=== PATIENT | female | born 1955 | race Caucasian/White ===

== ENCOUNTER → 2016-09-01 | Outpatient (CLI) | payer OTHER ==
[2016-09-01 13:37] LABS: MEAN CORPUSCULAR HEMOGLOBIN 33.4 pg (27.0-33.0); MEAN CORPUSCULAR HGB CONC 33.1 g/dl (32.0-36.5); MEAN CORPUSCULAR VOLUME 100.7 fl (80.0-96.0); RED CELL DISTRIBUTION WIDTH 11.6 % (11.5-14.5); WHITE BLOOD COUNT 5.8 K/mm3 (4.0-10.0)
[2016-09-01 13:39] LABS: ALBUMIN 4.2 GM/DL (3.2-5.2); ALBUMIN/GLOBULIN RATIO 1.27 (1.00-1.93); ALKALINE PHOSPHATASE 73 U/L (45-117); ALT/SGPT 23 U/L (12-78); ANION GAP 9 MEQ/L (8-16); AST/SGOT 21 U/L (15-37); BILIRUBIN,TOTAL 0.3 MG/DL (0.2-1.0); BLOOD UREA NITROGEN 10 MG/DL (7-18); CALCIUM LEVEL 9.5 MG/DL (8.5-10.1); CARBON DIOXIDE LEVEL 28 MEQ/L (21-32); CHLORIDE LEVEL 101 MEQ/L (98-107); CHOLESTEROL LEVEL 257 MG/DL (<200); CREATININE FOR GFR 0.68 MG/DL (0.55-1.02); GLOMERULAR FILTRATION RATE > 60.0 (>51); GLUCOSE, FASTING 94 MG/DL (70-105); POTASSIUM SERUM 4.6 MEQ/L (3.5-5.1); SODIUM LEVEL 138 MEQ/L (136-145); TOTAL PROTEIN 7.5 GM/DL (6.4-8.2); TRIGLYCERIDES LEVEL 75 MG/DL (<150)
== END ==
LOC: M WUC 09:02
PROVIDERS: ATTEND Nurse Practitioner Adult Health
DX: Z00.00 Encounter for general adult medical examination without abnormal findings (principal)

== ENCOUNTER → 2016-12-17 | Outpatient (CLI) | payer OTHER ==
--- NOTE | 2016-12-17 11:06 | REPMRS ---
Patient History The patient states she has not had a clinical breast exam in over a year. Patient is postmenopausal. Family history of colorectal cancer in mother at age 50 or over and breast cancer in maternal aunt under age 50. Digital Woman Screen Mammo: December 17, 2016 - Exam #: [id number] Bilateral CC and MLO view(s) were taken. Technologist: Jessenia Park, Technologist Prior study comparison: December 16, 2015, digital woman screen mammo performed at [facility]. 2013, bilateral mammogram, performed at [facility]. FINDINGS: There are scattered fibroglandular densities. There has been no change in the appearance of the mammogram from the prior studies. There is a mild amount of scattered fibroglandular density which is fairly symmetric. There is no interval development of dominant mass, architectural distortion, or clustered microcalcification suggestive of malignancy. ASSESSMENT: BI-RADS/ACR category 1 mammogram. Negative. Recommendation Routine screening mammogram in 1 year (for women over age 40). This mammogram was interpreted with the aid of an FDA-approved computer-aided dectection system. Electronically Signed By: Skyler Arzola MD 12/17/16 2080
== END ==
LOC: M WHC 09:13
PROVIDERS: ATTEND Nurse Practitioner Adult Health
DX: Z12.39 Encounter for other screening for malignant neoplasm of breast (principal)

== ENCOUNTER → 2017-04-05 | Outpatient (REF) | payer OTHER ==
[2017-04-05 12:17] LABS: ALBUMIN/GLOBULIN RATIO 1.25 (1.00-1.93); ALKALINE PHOSPHATASE 67 U/L (45-117); ALT/SGPT 24 U/L (12-78); ANION GAP 8 MEQ/L (8-16); AST/SGOT 19 U/L (15-37); BILIRUBIN,TOTAL 0.4 MG/DL (0.2-1.0); BLOOD UREA NITROGEN 7 MG/DL (7-18); CALCIUM LEVEL 9.8 MG/DL (8.5-10.1); CARBON DIOXIDE LEVEL 30 MEQ/L (21-32); CHLORIDE LEVEL 102 MEQ/L (98-107); CHOLESTEROL LEVEL 237 MG/DL (<200); CREATININE FOR GFR 0.64 MG/DL (0.55-1.02); GLOMERULAR FILTRATION RATE > 60.0 (>51); GLUCOSE, FASTING 82 MG/DL (70-105); POTASSIUM SERUM 4.2 MEQ/L (3.5-5.1); SODIUM LEVEL 140 MEQ/L (136-145); TOTAL PROTEIN 7.2 GM/DL (6.4-8.2); TRIGLYCERIDES LEVEL 59 MG/DL (<150)
== END ==
LOC: M SFHCPLAZ 08:51
PROVIDERS: ATTEND Nurse Practitioner Adult Health
DX: I10 Essential (primary) hypertension (principal); E55.9 Vitamin D deficiency, unspecified; E78.2 Mixed hyperlipidemia

== ENCOUNTER → 2017-04-26 | Outpatient (CLI) | payer OTHER ==
--- NOTE | 2017-04-26 13:11 | REP ---
Clinical: Lung screening. History smoking. Comparison: None Technique: Axial low-dose noncontrast images from the thoracic inlet to the upper abdomen using lung screening technique. Findings: The lung kramer are well-aerated. A 5 mm noncalcified density is appreciated in the periphery of the right lower lobe (image 61) which by appearance likely represent small focal scar, but active pathology including nodule cannot be excluded. No consolidation or mass lesion is appreciated. No pleural effusion/reaction or pneumothorax. Tracheobronchial tree is patent. Mediastinum demonstrates mild atherosclerotic changes of the coronary arteries without cardiomegaly. Impression: Lung-RADS category II. 5 mm noncalcified density in the right lower lobe. Management recommendations include 12-month follow-up low-dose CT examination. Signed by Jeffery Escobedo MD 04/26/2017 01:03 P
== END ==
LOC: M RAD 10:21
PROVIDERS: ATTEND Nurse Practitioner Adult Health
DX: Z72.0 Tobacco use (principal)

== ENCOUNTER → 2017-09-22 | Outpatient (CLI) | payer OTHER ==
[2017-09-22 13:06] LABS: HEMATOCRIT 40.6 % (36.0-47.0); HEMOGLOBIN 13.8 g/dl (12.0-15.5); MEAN CORPUSCULAR HEMOGLOBIN 32.9 pg (27.0-33.0); MEAN CORPUSCULAR VOLUME 96.9 fl (80.0-96.0); PLATELET COUNT, AUTOMATED 373 10^3/uL (150-450); RED BLOOD COUNT 4.19 10^6/uL (4.00-5.40); RED CELL DISTRIBUTION WIDTH 11.8 % (11.5-14.5); WHITE BLOOD COUNT 6.3 10^3/uL (4.0-10.0)
[2017-09-22 13:40] LABS: ALBUMIN 4.1 GM/DL (3.2-5.2); ALBUMIN/GLOBULIN RATIO 1.11 (1.00-1.93); ALKALINE PHOSPHATASE 72 U/L (45-117); ALT/SGPT 25 U/L (12-78); ANION GAP 8 MEQ/L (8-16); AST/SGOT 21 U/L (7-37); BILIRUBIN,TOTAL 0.4 MG/DL (0.2-1.0); BLOOD UREA NITROGEN 8 MG/DL (7-18); CALCIUM LEVEL 9.5 MG/DL (8.5-10.1); CARBON DIOXIDE LEVEL 27 MEQ/L (21-32); CHLORIDE LEVEL 103 MEQ/L (98-107); CHOLESTEROL LEVEL 237 MG/DL (<200); CHOLESTEROL RISK RATIO 2.323 (<5); CREATININE FOR GFR 0.75 MG/DL (0.55-1.30); GLOMERULAR FILTRATION RATE > 60.0 (>51); GLUCOSE, FASTING 101 MG/DL (70-100); HDL CHOLESTEROL 102 MG/DL (>40); NON-HDL-C 135 MG/DL; SODIUM LEVEL 138 MEQ/L (136-145); TOTAL PROTEIN 7.8 GM/DL (6.4-8.2); TRIGLYCERIDES LEVEL 65 MG/DL (<150)
[2017-09-22 15:05] LABS: TOTAL 25(OH) VITAMIN D 37.8 NG/ML (30.0-100.0)
== END ==
LOC: M WUC 09:24
DX: Z00.00 Encounter for general adult medical examination without abnormal findings (principal); E55.9 Vitamin D deficiency, unspecified
CPT/HCPCS: 80053

== ENCOUNTER → 2018-03-21 | Outpatient (CLI) | payer OTHER | LOC: M WHC 09:51 | DX: Z12.31 Encounter for screening mammogram for malignant neoplasm of breast (principal) | CPT/HCPCS: 77067 ==

== ENCOUNTER → 2018-05-09 | Outpatient (CLI) | payer OTHER | LOC: M RAD 13:35 | DX: R91.1 Solitary pulmonary nodule (principal) | CPT/HCPCS: 71250 ==

== ENCOUNTER → 2018-09-20 | Outpatient (CLI) | payer OTHER ==
[2018-09-20 12:31] LABS: HEMATOCRIT 41.5 % (36.0-47.0); HEMOGLOBIN 14.2 g/dl (12.0-15.5); MEAN CORPUSCULAR HEMOGLOBIN 34.1 pg (27.0-33.0); MEAN CORPUSCULAR HGB CONC 34.2 g/dl (32.0-36.5); MEAN CORPUSCULAR VOLUME 99.8 fl (80.0-96.0); PLATELET COUNT, AUTOMATED 299 10^3/uL (150-450); RED BLOOD COUNT 4.16 10^6/uL (4.00-5.40); WHITE BLOOD COUNT 6.2 10^3/uL (4.0-10.0)
[2018-09-20 13:04] LABS: ALBUMIN 4.3 GM/DL (3.2-5.2); ALT/SGPT 34 U/L (12-78); BILIRUBIN,TOTAL 0.4 MG/DL (0.2-1.0); BLOOD UREA NITROGEN 4 MG/DL (7-18); CALCIUM LEVEL 9.8 MG/DL (8.8-10.2); CARBON DIOXIDE LEVEL 25 MEQ/L (21-32); CHLORIDE LEVEL 101 MEQ/L (98-107); CHOLESTEROL LEVEL 253 MG/DL (<200); CHOLESTEROL RISK RATIO 1.976 (<5); CREATININE FOR GFR 0.63 MG/DL (0.55-1.30); GLOMERULAR FILTRATION RATE > 60.0 (>45); GLUCOSE, FASTING 99 MG/DL (70-100); HDL CHOLESTEROL 128 MG/DL (>40); LDL CHOLESTEROL 110 MG/DL (<100); NON-HDL-C 125 MG/DL; SODIUM LEVEL 136 MEQ/L (136-145); TOTAL 25(OH) VITAMIN D 36.6 NG/ML (30.0-100.0); TOTAL PROTEIN 7.8 GM/DL (6.4-8.2); TRIGLYCERIDES LEVEL 76 MG/DL (<150)
== END ==
LOC: M WUC 09:04
PROVIDERS: ATTEND Nurse Practitioner Adult Health
DX: E78.2 Mixed hyperlipidemia (principal); E55.9 Vitamin D deficiency, unspecified

== ENCOUNTER → 2019-04-13 | Outpatient (CLI) | payer OTHER ==
--- NOTE | 2019-04-13 13:10 | REPMRS ---
Patient History The patient states she has not had a clinical breast exam in over a year. Family history of breast cancer under age 50 in maternal aunt, colorectal cancer at age 50 or over in mother. No Hormone Replacement Therapy 3D TOMOSYNTHESIS WAS PERFORMED. [facility] lifetime risk for breast cancer is 9.2%. Digital Woman Screen Mammo: April 13, 2019 - Exam #: [id number] Bilateral CC and MLO view(s) were taken. Technologist: Petty Aly, Technologist Prior study comparison: March 21, 2018, bilateral digital woman screen mammo performed at [facility]. December 17, 2016, digital woman screen mammo performed at [facility]. FINDINGS: The breast tissue is heterogeneously dense. This may lower the sensitivity of mammography. There has been no change in the appearance of the mammogram from the prior studies. There is a moderate amount of residual fibroglandular tissue which is fairly symmetric. There is no interval development of dominant mass, areas of architectural distortion, or clustered microcalcification typical of malignancy. Assessment: BI-RADS/ACR category 1 mammogram. Negative Mammogram. Recommendation Routine screening mammogram in 1 year (for women over age 40). This mammogram was interpreted with the aid of an FDA-approved computer-aided dectection system. Electronically Signed By: David Coombs MD 04/13/19 [id number]
== END ==
LOC: M WHC 12:23
PROVIDERS: ATTEND Nurse Practitioner Adult Health
DX: Z12.31 Encounter for screening mammogram for malignant neoplasm of breast (principal)

== ENCOUNTER 2019-05-25 07:12 | Day surgery (SDC) | payer OTHER ==
[~2019-05-25] VITALS: Ht 165.1 cm; Wt 65.0 kg
[~2019-05-25 07:12] MED LIST: CBD OIL PO; D32000TA2 PO; LOSA25TA14 PO
[2019-05-25] MEDS ORDERED: NS 1,000 ML IV ONE (08:00)
[2019-05-25] MEDS ORDERED: PROPOFOL 200 MG/20 ML VIAL As Ordered ONE ×2 (08:28→08:29)
[2019-05-25] MEDS ORDERED: LIDOCAINE 2% INJ 100 MG/5 ML SDV (FOR ANES.) As Ordered ONE (08:28)
--- NOTE | 2019-05-25 08:34 | ROOR ---
Patient Name: Sultana Plaza Procedure Date: 05/25/2019 8:08 AM Date of : 1955 Age: 63 Room: [facility] Gender: Female Note Status: Finalized Procedure: Colonoscopy Indications: Screening in patient at increased risk: Colorectal cancer in mother before age 60 Providers: Mayur WOODWARD MD Referring MD: Gissell MCCALL NP Requesting Provider: Medicines: Monitored Anesthesia Care Complications: No immediate complications. Procedure: Pre-Anesthesia Assessment: - The heart rate, respiratory rate, oxygen saturations, blood pressure, adequacy of pulmonary ventilation, and response to care were monitored throughout the procedure. The Colonoscope was introduced through the anus and advanced to the cecum, identified by appendiceal orifice and ileocecal valve. The colonoscopy was performed without difficulty. The patient tolerated the procedure well. The quality of the bowel preparation was good. Findings: The perianal and digital rectal examinations were normal. The colon (entire examined portion) appeared normal. Impression: - The entire colon is normal. - No specimens collected. Recommendation: - Repeat colonoscopy in 5 years for screening purposes. Mayur Woodward MD Mayur WOODWARD MD 05/25/2019 8:34:37 AM Electronically signed by Mayur WOODWARD MD Number of Addenda: 0 Note Initiated On: 05/25/2019 8:08 AM Estimated Blood Loss: Estimated blood loss: none.
[2019-05-25 08:55] VITALS: BP 174/80
== END 2019-05-25 09:07 | disposition home or self-care (01) ==
LOC: M OPP 07:12
PROVIDERS: ATTEND Internal Medicine Gastroenterology
DX: Z12.11 Encounter for screening for malignant neoplasm of colon (principal); Z80.0 Family history of malignant neoplasm of digestive organs; F17.290 Nicotine dependence, other tobacco product, uncomplicated; Z79.899 Other long term (current) drug therapy; Z88.6 Allergy status to analgesic agent

== ENCOUNTER → 2019-09-19 | Outpatient (CLI) | payer OTHER ==
--- NOTE | 2019-09-19 09:47 | REP ---
REASON: Pulmonary nodules. COMPARISON: Multiple, the latest 05/09/2018. As per the protocol, only lung window images were sent to the read station for interpretation. Once again, there are multiple pulmonary nodules all of which are stable. Once again, there is evidence of emphysematous change, status quo along with mild biapical pleuroparenchymal scarring. No new abnormal nodules, masses, or opacities have developed. Grossly, the mediastinum and pulmonary brittaney are unchanged. Grossly, the imaged upper abdomen and imaged osseous structures are unchanged. IMPRESSION: Stable chronic changes. According to the revised Fleischner's society criteria yearly lung CT screening is recommended provided the patient's risk factors remain high. Electronically Signed by Brenton Ortega DO 09/19/2019 10:24 A
== END ==
LOC: M RAD 08:57
PROVIDERS: ATTEND Nurse Practitioner Adult Health
DX: R91.1 Solitary pulmonary nodule (principal)

== ENCOUNTER → 2020-05-02 | Outpatient (CLI) | payer OTHER ==
--- NOTE | 2020-05-02 13:36 | REPMRS ---
Patient History The patient states she has not had a clinical breast exam in over a year. Family history of breast cancer under age 50 in maternal aunt, colorectal cancer at age 50 or over in mother. No Hormone Replacement Therapy 3D TOMOSYNTHESIS WAS PERFORMED. The [facility] Cummings lifetime risk for breast cancer is 8.9%. Volpara breast density b. Digital Woman Screen Mammo: May 02, 2020 - Exam #: [id number] Bilateral CC and MLO view(s) were taken. Technologist: Petty Aly, Technologist Prior study comparison: April 13, 2019, bilateral digital woman screen mammo performed at [facility]. March 21, 2018, bilateral digital woman screen mammo performed at [facility]. FINDINGS: The breast tissue is heterogeneously dense. This may lower the sensitivity of mammography. There has been no change in the appearance of the mammogram from the prior studies. There is a moderate amount of residual fibroglandular tissue which is fairly symmetric. There is no interval development of dominant mass, areas of architectural distortion, or clustered microcalcification typical of malignancy. Assessment: BI-RADS/ACR category 1 mammogram. Negative Mammogram. Recommendation Routine screening mammogram in 1 year (for women over age 40). This mammogram was interpreted with the aid of an FDA-approved computer-aided dectection system. Electronically Signed By: David Coombs MD 05/02/20 [id number]
== END ==
LOC: M WHC 11:53
PROVIDERS: ATTEND Nurse Practitioner Adult Health
DX: Z12.31 Encounter for screening mammogram for malignant neoplasm of breast (principal); Z80.3 Family history of malignant neoplasm of breast; Z80.0 Family history of malignant neoplasm of digestive organs

== ENCOUNTER → 2020-05-19 | Outpatient (CLI) | payer OTHER ==
[2020-05-19 16:20] LABS: ALBUMIN 3.9 GM/DL (3.2-5.2); ALT/SGPT 42 U/L (12-78); BILIRUBIN,TOTAL 0.5 MG/DL (0.2-1.0); BLOOD UREA NITROGEN 7 MG/DL (7-18); CALCIUM LEVEL 9.6 MG/DL (8.8-10.2); CARBON DIOXIDE LEVEL 28 MEQ/L (21-32); CHLORIDE LEVEL 101 MEQ/L (98-107); CHOLESTEROL LEVEL 256 MG/DL (<200); CHOLESTEROL RISK RATIO 2.081 (<5); CREATININE FOR GFR 0.71 MG/DL (0.55-1.30); GLOMERULAR FILTRATION RATE > 60.0 (>45); GLUCOSE, FASTING 97 MG/DL (70-100); HDL CHOLESTEROL 123 MG/DL (>40); LDL CHOLESTEROL 120 MG/DL (<100); NON-HDL-C 133 MG/DL; POTASSIUM SERUM 4.1 MEQ/L (3.5-5.1); SODIUM LEVEL 136 MEQ/L (136-145); TOTAL 25(OH) VITAMIN D 59.2 NG/ML (30.0-100.0); TOTAL PROTEIN 7.6 GM/DL (6.4-8.2); TRIGLYCERIDES LEVEL 63 MG/DL (<150)
== END ==
LOC: M WUC 11:10
PROVIDERS: ATTEND Nurse Practitioner Adult Health
DX: E55.9 Vitamin D deficiency, unspecified (principal); Z00.00 Encounter for general adult medical examination without abnormal findings; E78.2 Mixed hyperlipidemia

== ENCOUNTER → 2020-07-29 | Outpatient (REF) | payer OTHER | LOC: M SFHCWAGY 16:51 | PROVIDERS: ATTEND Nurse Practitioner Adult Health | DX: Z01.419 Encounter for gynecological examination (general) (routine) without abnormal findings (principal) ==

== ENCOUNTER → 2020-10-30 | Outpatient (CLI) | payer OTHER ==
--- NOTE | 2020-10-31 06:19 | REP ---
INDICATION: LUNG NODULE COMPARISON: 09/19/2019, 05/09/2018 TECHNIQUE: Axial noncontrast images from the thoracic inlet to the upper abdomen using low-dose lung screening technique (LDCT). FINDINGS: Chronic emphysematous changes with scattered subtle scarring and small scattered stable densities are again noted. No acute consolidation, new nodule or mass lesion. No pleural effusion. No pneumothorax. Tracheobronchial tree is patent. IMPRESSION: Lung-RADS category 2. Stable findings. Management recommendations include annual low-dose CT surveillance. <Electronically signed by Jeffery Escobedo > 10/31/20 0616
== END ==
LOC: M RAD 10:47
PROVIDERS: ATTEND Nurse Practitioner Adult Health
DX: Z12.2 Encounter for screening for malignant neoplasm of respiratory organs (principal); R91.1 Solitary pulmonary nodule

== ENCOUNTER → 2021-06-30 | Outpatient (CLI) | payer OTHER ==
[~2021-06-30] MED LIST changes: +LOSA25TA13 PO; -LOSA25TA14 PO
[2021-06-30 14:27] LABS: ALT/SGPT 32 U/L (12-78); BILIRUBIN,TOTAL 0.3 MG/DL (0.2-1.0); BLOOD UREA NITROGEN 8 MG/DL (7-18); CALCIUM LEVEL 9.7 MG/DL (8.8-10.2); CARBON DIOXIDE LEVEL 25 MEQ/L (21-32); CHLORIDE LEVEL 101 MEQ/L (98-107); CHOLESTEROL LEVEL 262 MG/DL (<200); CREATININE FOR GFR 0.79 MG/DL (0.55-1.30); GLOMERULAR FILTRATION RATE > 60.0 (>45); GLUCOSE, FASTING 127 MG/DL (70-100); HDL CHOLESTEROL 118 MG/DL (>40); LDL CHOLESTEROL 127 MG/DL (<100); NON-HDL-C 144 MG/DL; SODIUM LEVEL 135 MEQ/L (136-145); TOTAL PROTEIN 7.7 GM/DL (6.4-8.2); TRIGLYCERIDES LEVEL 83 MG/DL (<150)
== END ==
LOC: M WUC 09:31
PROVIDERS: ATTEND Nurse Practitioner Adult Health
DX: Z13.29 Encounter for screening for other suspected endocrine disorder (principal); E55.9 Vitamin D deficiency, unspecified; I10 Essential (primary) hypertension; E78.2 Mixed hyperlipidemia

== ENCOUNTER → 2021-08-10 | Outpatient (CLI) | payer OTHER | LOC: M WHC 13:28 | PROVIDERS: ATTEND Nurse Practitioner Adult Health | DX: Z12.31 Encounter for screening mammogram for malignant neoplasm of breast (principal) ==

== ENCOUNTER → 2022-06-28 | Outpatient (CLI) | payer OTHER ==
[2022-06-28 16:47] LABS: HEMATOCRIT 43.1 % (36.0-47.0); HEMOGLOBIN 14.3 g/dl (12.0-15.5); MEAN CORPUSCULAR HEMOGLOBIN 32.7 pg (27.0-33.0); MEAN CORPUSCULAR HGB CONC 33.2 g/dl (32.0-36.5); MEAN CORPUSCULAR VOLUME 98.6 fl (80.0-96.0); PLATELET COUNT, AUTOMATED 268 10^3/uL (150-450); RED BLOOD COUNT 4.37 10^6/uL (4.00-5.40); WHITE BLOOD COUNT 9.7 10^3/uL (4.0-10.0)
[2022-06-28 17:26] LABS: ALKALINE PHOSPHATASE 84 U/L (46-116); ALT/SGPT 22 U/L (7.0-40); AST/SGOT 23 U/L (<34); BILIRUBIN,TOTAL 0.5 MG/DL (0.3-1.2); BLOOD UREA NITROGEN 11 MG/DL (9-23); CALCIUM LEVEL 9.8 MG/DL (8.3-10.6); CARBON DIOXIDE LEVEL 27 MMOL/L (20-31); CHLORIDE LEVEL 98 MMOL/L (98-107); CHOLESTEROL LEVEL 240 MG/DL (<200); CHOLESTEROL RISK RATIO 2.52 (<5); CREATININE FOR GFR 0.68 MG/DL (0.55-1.30); GLOMERULAR FILTRATION RATE > 60.0 (>45); GLUCOSE, FASTING 96 MG/DL (74-106); HDL CHOLESTEROL 95.2 MG/DL (>40); NON-HDL-C 145 MG/DL; POTASSIUM SERUM 4.7 MMOL/L (3.5-5.1); SODIUM LEVEL 136 MMOL/L (136-145); TOTAL PROTEIN 7.2 G/DL (5.7-8.2); TRIGLYCERIDES LEVEL 84 MG/DL (<150)
[2022-06-28 17:28] LABS: THYROID STIMULATING HORMONE 1.855 uIU/ML (0.55-4.78); TOTAL 25(OH) VITAMIN D 55.1 NG/ML (20.0-100.0)
== END ==
LOC: M WUC 11:10
PROVIDERS: ATTEND Nurse Practitioner Adult Health
DX: Z00.00 Encounter for general adult medical examination without abnormal findings (principal); E55.9 Vitamin D deficiency, unspecified; E78.2 Mixed hyperlipidemia; I10 Essential (primary) hypertension; Z13.29 Encounter for screening for other suspected endocrine disorder

== ENCOUNTER → 2023-01-12 | Outpatient (CLI) | payer MEDICARE, OTHER | LOC: M WHC 11:02 | PROVIDERS: ATTEND Nurse Practitioner Adult Health | DX: Z12.31 Encounter for screening mammogram for malignant neoplasm of breast (principal); Z78.0 Asymptomatic menopausal state; Z13.820 Encounter for screening for osteoporosis ==

== ENCOUNTER → 2023-02-18 | Outpatient (CLI) | payer MEDICARE, OTHER ==
[2023-02-18 20:37] LABS: ALBUMIN 3.9 G/DL (3.2-5.2); ALKALINE PHOSPHATASE 69 U/L (46-116); ALT/SGPT 25 U/L (7.0-40); AST/SGOT 22 U/L (<34); BILIRUBIN,TOTAL 0.6 MG/DL (0.3-1.2); BLOOD UREA NITROGEN 8 MG/DL (9-23); CALCIUM LEVEL 9.6 MG/DL (8.3-10.6); CARBON DIOXIDE LEVEL 28 MMOL/L (20-31); CHLORIDE LEVEL 100 MMOL/L (98-107); CHOLESTEROL LEVEL 208 MG/DL (<200); CHOLESTEROL RISK RATIO 2.02 (<5); CREATININE FOR GFR 0.67 MG/DL (0.55-1.30); GLOMERULAR FILTRATION RATE > 60.0 (>45); GLUCOSE, FASTING 93 MG/DL (74-106); HDL CHOLESTEROL 102.9 MG/DL (>40); LDL CHOLESTEROL 91.3 MG/DL (<100); NON-HDL-C 105.1 MG/DL; POTASSIUM SERUM 4.8 MMOL/L (3.5-5.1); SODIUM LEVEL 133 MMOL/L (136-145); THYROID STIMULATING HORMONE 1.471 uIU/ML (0.55-4.78); TOTAL 25(OH) VITAMIN D 58.6 NG/ML (20.0-100.0); TOTAL PROTEIN 7.1 G/DL (5.7-8.2); TRIGLYCERIDES LEVEL 69 MG/DL (<150)
== END ==
LOC: M WUC 11:16
PROVIDERS: ATTEND Nurse Practitioner Adult Health
DX: I10 Essential (primary) hypertension (principal); E78.2 Mixed hyperlipidemia; E55.9 Vitamin D deficiency, unspecified; Z13.29 Encounter for screening for other suspected endocrine disorder

== ENCOUNTER → 2023-07-08 | Outpatient (CLI) | payer MEDICARE, OTHER ==
[2023-07-08 13:24] LABS: ALBUMIN 3.9 G/DL (3.2-5.2); ALKALINE PHOSPHATASE 76 U/L (46-116); ALT/SGPT 34 U/L (7.0-40); AST/SGOT 40 U/L (<34); BILIRUBIN,TOTAL 0.6 MG/DL (0.3-1.2); BLOOD UREA NITROGEN 8 MG/DL (9-23); CALCIUM LEVEL 9.8 MG/DL (8.3-10.6); CARBON DIOXIDE LEVEL 26 MMOL/L (20-31); CHLORIDE LEVEL 103 MMOL/L (98-107); CHOLESTEROL LEVEL 214 MG/DL (<200); CREATININE FOR GFR 0.57 MG/DL (0.55-1.30); GLOMERULAR FILTRATION RATE > 60.0 (>45); GLUCOSE, FASTING 105 MG/DL (74-106); POTASSIUM SERUM 5.1 MMOL/L (3.5-5.1); SODIUM LEVEL 136 MMOL/L (136-145); TOTAL PROTEIN 7.4 G/DL (5.7-8.2); TRIGLYCERIDES LEVEL 70 MG/DL (<150)
[2023-07-08 13:26] LABS: THYROID STIMULATING HORMONE 2.012 uIU/ML (0.55-4.78); TOTAL 25(OH) VITAMIN D 70.4 NG/ML (20.0-100.0)
== END ==
LOC: M WUC 09:35
PROVIDERS: ATTEND Nurse Practitioner Adult Health
DX: I10 Essential (primary) hypertension (principal); E78.2 Mixed hyperlipidemia; Z13.29 Encounter for screening for other suspected endocrine disorder; E55.9 Vitamin D deficiency, unspecified; M16.12 Unilateral primary osteoarthritis, left hip

== ENCOUNTER → 2023-08-12 | Outpatient (CLI) | payer MEDICARE | LOC: M RAD 08:57 | PROVIDERS: ATTEND Nurse Practitioner Adult Health | DX: Z87.891 Personal history of nicotine dependence (principal) ==

== ENCOUNTER → 2024-03-16 | Outpatient (CLI) | payer MEDICARE | LOC: M WHC 09:54 | PROVIDERS: ATTEND Nurse Practitioner Adult Health | DX: Z12.31 Encounter for screening mammogram for malignant neoplasm of breast (principal); R92.313 Mammographic fatty tissue density, bilateral breasts ==

== ENCOUNTER → 2024-08-22 | Outpatient (CLI) | payer MEDICARE ==
[~2024-08-22] MED LIST changes: +LOSA100T46 PO; +VITA200030 PO
== END ==
LOC: M SOG 07:51
PROVIDERS: ATTEND Orthopaedic Surgery
DX: M25.552 Pain in left hip (principal); M16.12 Unilateral primary osteoarthritis, left hip

== ENCOUNTER → 2024-08-31 | Outpatient (CLI) | payer MEDICARE ==
[~2024-08-31] MED LIST changes: +ISOVUE-300 61% 100ML VIAL As Ordered ONE; +methylPREDNISolone SUSP 40MG/ML 1ML VIAL (DEPO MEDROL) As Ordered ONE
== END ==
LOC: M RAD 13:46
PROVIDERS: ATTEND Orthopaedic Surgery
DX: M16.0 Bilateral primary osteoarthritis of hip (principal)
CPT/HCPCS: 20610; 77002; J0665; J1010; Q9967

== ENCOUNTER → 2024-10-09 | Outpatient (CLI) | payer MEDICARE ==
[~2024-10-09] MED LIST changes: -ISOVUE-300 61% 100ML VIAL As Ordered ONE; -methylPREDNISolone SUSP 40MG/ML 1ML VIAL (DEPO MEDROL) As Ordered ONE
== END ==
LOC: M RAD 12:33
PROVIDERS: ATTEND Nurse Practitioner Adult Health
DX: Z12.2 Encounter for screening for malignant neoplasm of respiratory organs (principal); Z87.891 Personal history of nicotine dependence

== ENCOUNTER → 2025-01-08 | Outpatient (CLI) | payer MEDICARE ==
[2025-01-08 12:43] LABS: PLATELET COUNT, AUTOMATED 360 10^3/uL (150-450)
[2025-01-08 13:10] LABS: ALT/SGPT 21.0 U/L (7.0-40); AST/SGOT 24.0 U/L (<34); CALCIUM LEVEL 9.5 MG/DL (8.3-10.6); CARBON DIOXIDE LEVEL 26.0 MMOL/L (20-31); CHLORIDE LEVEL 97.0 MMOL/L (98-107); CHOLESTEROL LEVEL 136.0 MG/DL (<200); CHOLESTEROL RISK RATIO 8.39 (<5); CREATININE FOR GFR 0.74 MG/DL (0.55-1.30); GLOMERULAR FILTRATION RATE 88.6 (>45); LDL CHOLESTEROL 89.2 MG/DL (<100); NON-HDL-C 119.8 MG/DL; POTASSIUM SERUM 4.9 MMOL/L (3.5-5.1); SODIUM LEVEL 136.0 MMOL/L (136-145); TRIGLYCERIDES LEVEL 153.0 MG/DL (<150)
[2025-01-08 13:12] LABS: FREE T4 1.28 NG/DL (0.89-1.76); TOTAL 25(OH) VITAMIN D 111.2 NG/ML (20.0-100.0)
== END ==
LOC: M WUC 10:02
PROVIDERS: ATTEND Nurse Practitioner Adult Health
DX: Z00.00 Encounter for general adult medical examination without abnormal findings (principal); I10 Essential (primary) hypertension; E55.9 Vitamin D deficiency, unspecified; E78.2 Mixed hyperlipidemia

== ENCOUNTER → 2025-03-05 | Outpatient (CLI) | payer MEDICARE ==
[~2025-03-05] MED LIST changes: +ISOVUE-300 61% 100 ML VIAL As Ordered ONE; +methylPREDNISolone SUSP 40 MG/ML 1 ML VIAL As Ordered ONE
== END ==
LOC: M RAD 14:47
PROVIDERS: ATTEND Orthopaedic Surgery
DX: M16.0 Bilateral primary osteoarthritis of hip (principal); M25.552 Pain in left hip
CPT/HCPCS: 20610; 77002; J0665; J1010; Q9967

== ENCOUNTER 2025-04-17 11:51 | Day surgery (SDC) | payer MEDICARE ==
[~2025-04-17] VITALS: Ht 165.1 cm; Wt 67.4 kg
[~2025-04-17 11:51] MED LIST changes: -ISOVUE-300 61% 100 ML VIAL As Ordered ONE; +MELO15TA28 PO; +[UNRECOGNIZED DRUG - CODE] PO; -methylPREDNISolone SUSP 40 MG/ML 1 ML VIAL As Ordered ONE
[2025-04-17] MEDS ORDERED: LIDOCAINE 2% 100 MG/5 ML SDV (FOR ANES.) As Ordered ONE (12:30)
[2025-04-17 12:48] VITALS: TEMP 98
[2025-04-17 13:05] VITALS: BP 148/75; O2SAT 97
== END 2025-04-17 14:44 | disposition home or self-care (01) ==
LOC: M OPP 11:51
PROVIDERS: ATTEND Surgery
DX: Z12.11 Encounter for screening for malignant neoplasm of colon (principal); K64.0 First degree hemorrhoids; Z88.6 Allergy status to analgesic agent; Z79.899 Other long term (current) drug therapy; F17.290 Nicotine dependence, other tobacco product, uncomplicated

== ENCOUNTER → 2025-05-03 | Outpatient (CLI) | payer MEDICARE | LOC: M WHC 10:39 | PROVIDERS: ATTEND Nurse Practitioner Adult Health | DX: Z12.31 Encounter for screening mammogram for malignant neoplasm of breast (principal) ==